=== PATIENT | female | born 1990 | race Caucasian/White ===

== ENCOUNTER 2025-07-03 10:56 | Day surgery (SDC) | payer OTHER ==
[~2025-07-03 10:56] MED LIST: Sensorcaine 0.25% 10 ML ONE
[2025-07-03] MEDS ORDERED: NEURONTIN ONE (11:04)
[2025-07-03] MEDS ORDERED: TYLENOL EXTRA STRENGTH 500 MG ONE (11:04)
[2025-07-03] MEDS ORDERED: Transderm Scop 1.5MG Patch ONE (11:04)
[2025-07-03] MEDS ORDERED: Pepcid 20 MG VIAL IV ONE (11:04)
[2025-07-03] MEDS ORDERED: celeBREX 100 MG ONE (11:04)
[2025-07-03] MEDS ORDERED: Reglan 10 MG/2 ML ONE (11:04)
[2025-07-03] MEDS ORDERED: Lactated Ringers 1,000 ML IV ONE ×2 (11:05→12:28)
[2025-07-03] MEDS ORDERED: Decadron 4 MG ONE (11:05)
[2025-07-03] MEDS ORDERED: CEFAZOLIN SODIUM ONE (11:05)
[2025-07-03] MEDS: Reglan 10 MG/2 ML IV ONE (11:08)
[2025-07-03] MEDS: Pepcid 20 MG VIAL IV ONE (11:08)
[2025-07-03] MEDS: Lactated Ringers 1,000 ML IV SCH (11:08)
[2025-07-03] MEDS: Transderm Scop 1.5MG Patch TOP PRN (11:09)
[2025-07-03] MEDS: NEURONTIN PO ONE (11:09)
[2025-07-03] MEDS: Decadron 4 MG PO ONE (11:09)
[2025-07-03] MEDS: celeBREX 100 MG PO ONE (11:09)
[2025-07-03] MEDS: TYLENOL EXTRA STRENGTH 500 MG PO ONE (11:09)
[2025-07-03 11:20] VITALS: RESP 18
[2025-07-03 11:36] LABS: HCG URINE TEST NEGATIVE (NEGATIVE)
[2025-07-03] MEDS ORDERED: Zofran 4 MG/2 ML VIAL ONE (11:46)
[2025-07-03] MEDS ORDERED: ROCURONIUM BROMIDE IV ONE (11:46)
[2025-07-03] MEDS ORDERED: propofoL IV ONE (11:46)
[2025-07-03] MEDS ORDERED: SUBLIMAZE 100 MCG/2 ML ONE ×3 (12:06→12:59)
[2025-07-03] MEDS ORDERED: BRIDION 200MG/2ML IV ONE (12:41)
[2025-07-03] MEDS ORDERED: Sensorcaine 0.25% 10 ML ONE (12:43)
[2025-07-03] MEDS ORDERED: TORAdol 30 mg Injection ONE (12:53)
[2025-07-03] MEDS ORDERED: DILAUDID 0.5 MG/0.5 ML SYRINGE ONE ×2 (12:59→13:42)
[2025-07-03 14:22] VITALS: BP 128/71; PULSE 68; TEMP 97.8; O2SAT 98
--- NOTE | 2025-07-04 11:21 | OP ---
SURGERY DATE/TIME: 07/03/2025 [id number] PREOPERATIVE DIAGNOSIS: Cholecystitis. POSTOPERATIVE DIAGNOSIS: Cholecystitis. PROCEDURE: Laparoscopic cholecystectomy. SURGEON: Slade Ospina MD ANESTHESIA: General. ESTIMATED BLOOD LOSS: Minimal. CONDITION: Stable. COMPLICATIONS: None. SPECIMEN: Gallbladder. INDICATIONS: Patient presents with abdominal pain episodes, imaging showing gallstones. Discussed with patient risks of infection, bleeding, injury to nearby structure, hernia, failure to resolve symptoms. She would like to proceed with surgery. FINDINGS: Critical view, stones. DESCRIPTION OF PROCEDURE AND FINDINGS: Patient brought to the operating room. General anesthesia induced. She was routinely positioned, prepped, draped. Time-out performed. Received preoperative antibiotic. The 5 mm Optiview trocar placed in left upper quadrant. Pneumoperitoneum established. An 11 mm right paramedian trocar placed. Two additional 5 mm trocars placed in right upper quadrant. Patient positioned. There were omental adhesions to the liver and gallbladder taken down with cautery. Then, the cystic duct and cystic artery dissected out. Critical view was clearly obtained. Both were clipped with 5 mm metal clip cloud architect then divided. Gallbladder taken off the liver bed. A small hole was made in the gallbladder. A few small stones were spilled which were suctioned out. Gallbladder placed in specimen bag, removed through the 11 trocar site. Right upper quadrant reinspected. Clips were in good position. There was good hemostasis. Irrigated and suctioned out and totally clear, no stones. The 11 trocar site then closed with interrupted 0 Vicryl suture passer. The right upper quadrant ports removed under direct visualization. Left upper quadrant port used for desufflation and then Marcaine injected at all incision sites. Skin was closed with 4-0 Vicryl sutures. Steri-Strips, sterile dressing applied. All counts were correct. Patient tolerated the procedure well. Plan is for extubation.
== END 2025-07-03 14:36 | disposition home or self-care (01) ==
LOC: SDC 10:56
PROVIDERS: ATTEND Surgery
DX: K81.9 Cholecystitis, unspecified (principal)